=== PATIENT | female | born 1950 | race Caucasian/White ===

== ENCOUNTER → 2016-11-21 | Outpatient (CLI) | payer OTHER ==
[~2016-11-21] MED LIST: ALTACE PO; AMARYL2 MG; APIDRA (NF100 UNITS/ SUBQ; BAYER CHEWABLE81 MG PO; BENICAR HCT 40-1 TA1; BENICAR HCT 40-1 TA1 PO; CELEBREX PO; COLACE50 MG PO; DEMADEX PO; DOXYCYCLINE HY100 M4 PO; FLEXERIL PO; FLEXERIL10 M1; GLYNASE; IBUPROFEN600 MG PO; JANUVIA PO; LANTUS SOLOSTAR3 ML SUBQ; LANTUS100 U/ML SUBQ; LIPOFEN150 MG; LIPOFEN150 MG PO; MEDROL DOSEPAK4 MG PO; MILK OF MAGNESIA PO; ONGLYZA5 MG; PERCOCET 71 UDTAB 71 PO; PRAVASTATIN SOD40 MG; PRAVASTATIN SOD40 MG PO; PRO-AIR INHALER; PROAIR HFA8.5 GM IH; PROAIR HFA8.5 GM INH; TORSEMIDE10 MG PO; TRAMADOL HCL50 M1; TRAMADOL HCL50 M2 PO; TUSSIONEX PENN473 ML PO; TYLOX1 CAP 5/50 PO; VICTOZA0.6 MG/0.1 SQ; VYTORIN PO; ZITHROMAX1 G/PKT PO
--- NOTE | ~2016-11-21 | BD1 ---
[facility] A Service of [facility] & [facility] RADIOLOGY TEXT RESULTS PATIENT: KRYSTLE QUEZADA LOCATION: [facility] : 52 UNIT #: [id number] AGE: [address]: Renita Guillen MD SEX: F ORDER DR: [id number] [facility] [address] [place], [place] [address] [id number] O MR#: [id number] Acc #: [id number] NAME: KRYSTLE QUEZADA : 1950 SEX: F STUDY DATE/TIME: 11/21/2016 10:07 UNIT: [facility] ROOM: STUDY DESCRIPTION: BD Dexa Bone Dens 1+ Site Attending Physician: Renita Guillen M.D. Referring Physician: Renita Guillen M.D. Ordering Physician: Renita Guillen M.D. Primary Care Physician: Renita Guillen M.D. MEDICAL IMAGING REPORT This report is preliminary unless electronic signature is present EXAM DXA scan, 11/21/2016. HISTORY Status post menopause with no hormone replacement therapy. Osteopenia. Kidney disease. Rheumatoid arthritis and diabetes. Hypertension with blood pressure medication for 3 years. Smoking history for 40 years. FINDINGS Bone mineral density in the lumbar spine from L1-L4 was 1.081 g/cm2 which is 0.3 standard deviations above the mean when compared to the young adult reference population which is within the range of normal. This is 2.1 standard deviations above the mean when compared to the age-matched population. Bone mineral density in the left femoral neck was 0.727 g/cm2 which is 1.1 standard deviations below the mean when compared to the young adult reference population which is characteristic of osteopenia. This is 0.4 standard deviations above the mean when compared to the age-matched population. IMPRESSION Bone mineral density in the lumbar spine within the range of normal and within the left hip characteristic of osteopenia. Dictated by... Ryan Liu M.D. THIS IS AN ELECTRONICALLY VERIFIED REPORT Ryan Liu M.D. at 11/22/2016 8:02 AM FIOR/tmw STS. [facility] A Service of [facility] & [facility] RADIOLOGY TEXT RESULTS PATIENT: KRYSTLE QUEZADA [id number] : [birth year] UNIT #: [id number] AGE: [address]: Renita Guillen MD SEX: F ORDER DR: TD: 11/21/2016 11:36 JOB #: [id number] MEDICAL IMAGING REPORT Page 1 of 1 COPY
== END | disposition home or self-care (01) ==
LOC: CWCC 09:48
DX: Z13.820 Encounter for screening for osteoporosis (principal); N95.9 Unspecified menopausal and perimenopausal disorder; M85.88 Other specified disorders of bone density and structure, other site; Z88.2 Allergy status to sulfonamides
CPT/HCPCS: 77080

== ENCOUNTER → 2016-11-27 | Outpatient (CLI) | payer OTHER ==
--- NOTE | ~2016-11-27 | CT57 ---
[facility] A Service of [facility] & [facility] RADIOLOGY TEXT RESULTS PATIENT: KRYSTLE QUEZADA LOCATION: [facility] : 52 UNIT #: [id number] AGE: [address]: Renita Guillen MD SEX: F ORDER DR: [id number] [facility] [address] [place], [place] [address] [id number] O MR#: [id number] [facility] #: [id number] NAME: KRYSTLE QUEZADA : 1950 SEX: F STUDY DATE/TIME: 11/27/2016 13:37 UNIT: [facility] ROOM: STUDY DESCRIPTION: CT Chest Wo Cont Attending Physician: Renita Guillen M.D. Referring Physician: Renita Guillen M.D. Ordering Physician: Renita Guillen M.D. Primary Care Physician: Renita Guillen M.D. MEDICAL IMAGING REPORT This report is preliminary unless electronic signature is present EXAM CT of the chest without contrast INDICATIONS Shortness of breath for [address] images were obtained from the thoracic inlet through the dome of the diaphragm. No intravenous contrast material was administered. This CT exam was performed with one or more of the following radiation dose reduction techniques: Automatic exposure control, adjustment of mA and/or kV according to patient size, and iterative reconstruction. FINDINGS Patient does appear to have some mild interlobular septal prominence of uncertain clinical significance. This is more pronounced in a basilar-predominant distribution. The thyroid gland, trachea and esophagus appear unremarkable. Patient does have cardiomegaly, and there is no pleural or pericardial effusion. Mediastinal lymph nodes do not appear pathologically enlarged. Main pulmonary artery is enlarged measuring up to 3.8 cm. Thoracic aorta measures within normal size limits. Images through the upper abdomen do not demonstrate any acute abnormalities. Patient's liver is enlarged measuring up to 16.3 cm in craniocaudal dimensions. There is a right renal cyst. No aggressive osseous abnormalities are seen. IMPRESSION 1. Patient does have mild interlobular septal prominence of uncertain clinical significance. Patient does have some cardiomegaly and the possibility that this could reflect some vascular congestion is not excluded. Infectious or inflammatory etiologies would also be in the differential; correlation with patient's clinical presentation is suggested. No evidence of rufina fibrosis or pulmonary infiltrate is STS. [facility] A Service of [facility] RADIOLOGY TEXT RESULTS PATIENT: KRYSTLE QUEZADA LOCATION: [facility] : 52 UNIT #: [id number] AGE: [address]: Renita Guillen MD SEX: F ORDER DR: seen at this time. 2. Enlargement of the main pulmonary artery; this finding can be seen in the setting of pulmonary arterial hypertension. 3. Hepatomegaly. Dictated by... Sharron Zelaya M.D. THIS IS AN ELECTRONICALLY VERIFIED REPORT Sharron Zelaya M.D. at 11/28/2016 4:46 PM AFF/psc TD: 11/27/2016 20:26 JOB #: [id number] MEDICAL IMAGING REPORT Page 1 of 1 COPY
== END | disposition home or self-care (01) ==
LOC: CCAT 12:55
DX: R91.8 Other nonspecific abnormal finding of lung field (principal); I51.7 Cardiomegaly; I77.89 Other specified disorders of arteries and arterioles; I28.9 Disease of pulmonary vessels, unspecified; R16.0 Hepatomegaly, not elsewhere classified
CPT/HCPCS: 71250